=== PATIENT | female | born 2000 | race African-American/Black ===

== ENCOUNTER 2018-07-21 14:23 | Inpatient (IN) ==
[2018-07-21] MEDS ORDERED: MEPERIDINE 50 MG/1 ML VIAL IM ONE (14:43)
[2018-07-21] MEDS ORDERED: PROMETHAZINE 25 MG/1 ML VIAL IM ONE (14:43)
[2018-07-22] MEDS ORDERED: ACETAMINOPHEN 500 MG TABLET PO PRN (00:04)
[2018-07-22] MEDS ORDERED: ONDANSETRON 4 MG/2 ML VIAL IV PRN ×2 (05:23→16:38)
[2018-07-22] MEDS: LACTATED RINGERS 1,000 ML IV SCH ×5 (05:27→22:45)
[2018-07-22] MEDS ORDERED: BUTORPHANOL 2 MG/ML VIAL IV PRN (05:37)
[2018-07-22] MEDS: MEPERIDINE 50 MG/1 ML VIAL IV PRN ×2 (05:41→09:14)
[2018-07-22] MEDS ORDERED: OXYTOCIN/LR 20 UNIT/1,000 ML BAG IV SCH (06:00)
[2018-07-22 06:06] LABS: Basophils % 0.4 % (0.0-0.8); Eosinophils # 0.1 10*3/uL (0.0-0.87); Eosinophils % 0.5 % (0.00-10.9); Hematocrit 31.2 VOL% (35.7-47.0); Hemoglobin 9.7 GM/DL (12.0-16.0); Immature Granulocytes % 0.3 %; Immature Granulocytes Absolute 0.03 #; Lymphocytes # 2.6 10*3/uL (1.4-4.0); Lymphocytes % 26.2 % (21.3-54.2); Mean Corpuscular HGB Conc 31.1 GM/DL (32-36); Mean Corpuscular Hemoglobin 28 PG (27-34); Mean Corpuscular Volume 89.7 FL (87-102); Mean Platelet Volume 9.5 FL (9.6-12.0); Monocytes # 0.8 10*3/uL (0.11-0.8); Monocytes % 7.8 % (1.7-12.7); Neutrophils # 6.4 10*3/uL (1.4-7.4); Neutrophils % 64.8 % (38.7-73.9); Platelet Count 249 T/CUMM (130-400); Red Blood Count 3.48 MC/CUMM (3.8-5.5); Red Cell Distribution Width 13.7 % (9.3-17.3); White Blood Count 9.9 T/CUMM (4-12)
[2018-07-22] MEDS ORDERED: CITRIC ACID/SODIUM CITRATE 30 ML UDCUP PO ONE (06:09)
[2018-07-22] MEDS ORDERED: FAMOTIDINE 20 MG/2 ML VIAL IV ONE (06:09)
[2018-07-22 06:25] LABS: Alanine Aminotransferase 15 U/L (13-56); Albumin 2.4 G/DL (3.4-5.0); Alkaline Phosphatase 196 U/L (45-117); Aspartate Amino Transferase 25 U/L (0-37); Bilirubin,Total < 0.39 MG/DL (0.2-1.0); Blood Urea Nitrogen 5 MG/DL (7-18); Calcium 8.1 MG/DL (8.5-10.1); Glucose 67 MG/DL (74-106); Osmolality,Calculated 273.4 MOS/KG (273-304); Potassium 3.4 MMOL/L (3.5-5.1); Sodium 140 MMOL/L (136-145)
[2018-07-22] MEDS ORDERED: fentaNYL 2 MCG/ROPIV 0.2% EPID 100 ML EPIDURAL SCH (06:30)
[2018-07-22 10:17] LABS: Apearance,Urine Slightly Hazy (Clear); Bilirubin,Urine Negative (Negative); Blood, Urine Small mg/dL (Negative); Calcium Oxalate Crystals,Urine Occasional /HPF (Few); Glucose,Urine (UA) Negative (Negative); Ketones,Urine Negative (Negative); Mucus,Urine Many /LPF (Occasional); Nitrite,Urine Negative (Negative); Protein,Urine 30 MG/DL; RBC,Urine 32 /HPF (0-4); Squamous Epithelial Cell,Urine Occasional /HPF (0-10); Urine Color Yellow (Yellow); Urine Specific Gravity 1.024 (1.001-1.035); Urine Urobilinogen < 2.0 EU/DL (0.2-1.0); WBC,Urine 4 /HPF (0-6)
[2018-07-22] MEDS ORDERED: miSOPROStol 200 MCG TABLET ONE (14:21)
[2018-07-22] MEDS ORDERED: LIDOCAINE 1% 50 ML VIAL ONE (14:21)
[2018-07-22] MEDS ORDERED: METHYLERGONOVINE 0.2 MG/1 ML AMP ONE (14:22)
[2018-07-22] MEDS ORDERED: ceFAZolin 2,000 MG in PREMIX 1 EACH IV ONE (15:19)
[2018-07-22] MEDS ORDERED: WITCH HAZEL PADS 100/JAR TOP PRN (16:38)
[2018-07-22] MEDS ORDERED: LANOLIN 50% CREAM 0.3 OZ TUBE TOP PRN (16:38)
[2018-07-22] MEDS ORDERED: HYDROCORTISONE 2.5% RECTAL CREAM 30 GM TUBE TOP PRN (16:38)
[2018-07-22] MEDS ORDERED: BENZOCAINE 20%/MENTHOL 0.5% SPRAY 56 GM CAN TOP PRN (16:38)
[2018-07-22] MEDS ORDERED: BISACODYL 10 MG SUPP RECTAL PRN (16:38)
[2018-07-22] MEDS ORDERED: DIPH/TET/ACEL PERT BOOSTER VACCINE 0.5 ML VIAL IM ONE (16:38)
[2018-07-22] MEDS ORDERED: RHO(D) IMMUNE GLOBULIN 300 MCG SYRINGE IM ONE (16:38)
[2018-07-22] MEDS ORDERED: OXYTOCIN/LR 20 UNIT/1,000 ML BAG IV ONE (16:38)
[2018-07-22] MEDS ORDERED: ACETAMINOPHEN 325 MG TABLET PO PRN (16:38)
[2018-07-22] MEDS ORDERED: MEASLES/MUMPS/RUBELLA VACCINE 0.5 ML VIAL SUBCUT ONE (16:38)
[2018-07-22] MEDS ORDERED: oxyCODONE/ACETAMINOPHEN 5-325 MG TABLET PO PRN (16:38)
[2018-07-22] MEDS ORDERED: MORPHINE 10 MG/10 ML VIAL ONE (16:52)
[2018-07-22] MEDS ORDERED: KETAMINE 500 MG/10 ML VIAL ONE (16:53)
[2018-07-22] MEDS ORDERED: MIDAZOLAM 2 MG/2 ML VIAL ONE (16:53)
[2018-07-22] MEDS ORDERED: fentaNYL 100 MCG/2 ML VIAL ONE (16:54)
[2018-07-22] MEDS ORDERED: LIDOCAINE 2% 20 ML VIAL ONE (16:54)
[2018-07-22] MEDS: DOCUSATE SODIUM 100 MG CAPSULE PO SCH (20:55)
[2018-07-22] MEDS: IBUPROFEN 800 MG TABLET PO PRN (21:18)
[2018-07-23] MEDS: ceFAZolin 1,000 MG in SYRINGE 1 EACH IV SCH ×2 (00:17→08:20)
[2018-07-23] MEDS: oxyCODONE/ACETAMINOPHEN 5-325 MG TABLET PO PRN ×4 (05:51→23:52)
[2018-07-23 05:52] LABS: Basophils % 0.1 % (0.0-0.8); Hematocrit 24.1 VOL% (35.7-47.0); Hemoglobin 7.7 GM/DL (12.0-16.0); Immature Granulocytes % 0.6 %; Immature Granulocytes Absolute 0.13 #; Lymphocytes # 2.3 10*3/uL (1.4-4.0); Lymphocytes % 10.8 % (21.3-54.2); Mean Corpuscular Hemoglobin 28 PG (27-34); Monocytes # 1.4 10*3/uL (0.11-0.8); Monocytes % 6.6 % (1.7-12.7); Neutrophils # 17.7 10*3/uL (1.4-7.4); Neutrophils % 81.9 % (38.7-73.9); Platelet Count 215 T/CUMM (130-400); Red Blood Count 2.77 MC/CUMM (3.8-5.5); Red Cell Distribution Width 13.8 % (9.3-17.3); White Blood Count 21.6 T/CUMM (4-12)
[2018-07-23 06:20] LABS: Hypochromasia 2+; Platelet Estimate Normal; Target Cells Few
[2018-07-23] MEDS: FERROUS SULFATE 325 MG TABLET PO SCH ×3 (08:25→20:24)
[2018-07-23] MEDS: DOCUSATE SODIUM 100 MG CAPSULE PO SCH ×2 (08:25→20:24)
[2018-07-23] MEDS: IBUPROFEN 800 MG TABLET PO PRN ×3 (10:59→22:50)
[2018-07-23] MEDS: MAGNESIUM HYDROXIDE SUSP 30 ML UDCUP PO PRN (11:01)
[2018-07-24] MEDS ORDERED: SIMETHICONE CHEW 80 MG TABLET PO PRN (07:42)
[2018-07-24] MEDS: DOCUSATE SODIUM 100 MG CAPSULE PO SCH ×3 (08:54→23:53)
[2018-07-24] MEDS: MAGNESIUM HYDROXIDE SUSP 30 ML UDCUP PO PRN (08:54)
[2018-07-24] MEDS: FERROUS SULFATE 325 MG TABLET PO SCH ×4 (08:56→23:53)
[2018-07-24] MEDS: IBUPROFEN 800 MG TABLET PO PRN ×2 (08:56→19:48)
[2018-07-24 12:42] LABS: Basophils % 0.2 % (0.0-0.8); Eosinophils # 0.2 10*3/uL (0.0-0.87); Eosinophils % 0.9 % (0.00-10.9); Hematocrit 24.8 VOL% (35.7-47.0); Immature Granulocytes % 0.7 %; Immature Granulocytes Absolute 0.11 #; Lymphocytes # 2.4 10*3/uL (1.4-4.0); Lymphocytes % 14.8 % (21.3-54.2); Mean Corpuscular HGB Conc 32.3 GM/DL (32-36); Mean Corpuscular Hemoglobin 29 PG (27-34); Mean Corpuscular Volume 88.6 FL (87-102); Mean Platelet Volume 9.7 FL (9.6-12.0); Monocytes # 0.8 10*3/uL (0.11-0.8); Monocytes % 5.1 % (1.7-12.7); Neutrophils # 12.6 10*3/uL (1.4-7.4); Neutrophils % 78.3 % (38.7-73.9); Platelet Count 256 T/CUMM (130-400); Red Cell Distribution Width 13.9 % (9.3-17.3); White Blood Count 16.1 T/CUMM (4-12)
[2018-07-24] MEDS: oxyCODONE/ACETAMINOPHEN 5-325 MG TABLET PO PRN (15:55)
[2018-07-24] MEDS: POTASSIUM CHLORIDE 20 MEQ TABLET PO SCH ×2 (17:38→23:58)
[2018-07-25] MEDS: POTASSIUM CHLORIDE 20 MEQ TABLET PO SCH (06:14)
[2018-07-25 07:21] VITALS: BP 129/80
[2018-07-25] MEDS: FERROUS SULFATE 325 MG TABLET PO SCH (08:26)
[2018-07-25] MEDS: DOCUSATE SODIUM 100 MG CAPSULE PO SCH (08:26)
== END 2018-07-25 11:00 | disposition home or self-care (01) | DRG 540 ==
LOC: N.LDOUT 14:23 → N.LD 14:24 → N.OB 07-22 19:30
PROVIDERS: ADMIT Specialist; ATTEND Specialist
PROC: LDCSECT (ICD-10-PCS; 2018-07-22 16:00)

== ENCOUNTER 2018-10-18 17:38 | Observation (INO) ==
[2018-10-18] MEDS ORDERED: KETOROLAC 30 MG/1 ML VIAL IV STA (19:11)
[2018-10-18] MEDS ORDERED: ONDANSETRON 4 MG/2 ML VIAL IV STA (19:11)
[2018-10-18] MEDS ORDERED: SODIUM CHLORIDE 0.9% 1,000 ML IV STA (19:11)
[2018-10-18 19:32] LABS: Basophils # 0.1 10*3/uL (0.0-0.2); Basophils % 0.6 % (0.0-0.8); Eosinophils # 0.1 10*3/uL (0.0-0.87); Eosinophils % 1.4 % (0.00-10.9); Hematocrit 41.1 VOL% (35.7-47.0); Hemoglobin 12.6 GM/DL (12.0-16.0); Immature Granulocytes % 0.1 %; Immature Granulocytes Absolute 0.01 #; Lymphocytes # 4.3 10*3/uL (1.4-4.0); Lymphocytes % 53.5 % (21.3-54.2); Mean Corpuscular HGB Conc 30.7 GM/DL (32-36); Mean Corpuscular Volume 84.9 FL (87-102); Mean Platelet Volume 9.4 FL (9.6-12.0); Monocytes % 7.9 % (1.7-12.7); Neutrophils % 36.5 % (38.7-73.9); Platelet Count 357 T/CUMM (130-400); Red Blood Count 4.84 MC/CUMM (3.8-5.5); Red Cell Distribution Width 14.8 % (9.3-17.3); White Blood Count 7.9 T/CUMM (4-12)
[2018-10-18 19:58] LABS: Lymphocytes 52 % (20-55); Platelet Estimate Normal; Segmented Neutrophils 44 % (50-85); Total Cells Counted 100
[2018-10-18 20:22] LABS: Apearance,Urine CLEAR (Clear); Bacteria,Urine Occasional /HPF (Few); Bilirubin,Urine Negative (Negative); Blood, Urine Moderate mg/dL (Negative); Glucose,Urine (UA) Negative (Negative); Ketones,Urine Negative (Negative); Nitrite,Urine Negative (Negative); Protein,Urine Negative; RBC,Urine 1 /HPF (0-4); Squamous Epithelial Cell,Urine Occasional /HPF (0-10); Urine Color Straw (Yellow); Urine Specific Gravity 1.051 (1.001-1.035); Urine Urobilinogen < 2.0 EU/DL (0.2-1.0); WBC,Urine 2 /HPF (0-6)
[2018-10-18 20:30] LABS: Alanine Aminotransferase 26 U/L (13-56); Albumin 4.2 G/DL (3.4-5.0); Alkaline Phosphatase 111 U/L (45-117); Amylase 106 U/L (25-115); Aspartate Amino Transferase 20 U/L (0-37); Bilirubin,Total < 0.39 MG/DL (0.2-1.0); Blood Urea Nitrogen 8 MG/DL (7-18); Calcium 8.8 MG/DL (8.5-10.1); Glucose 87 MG/DL (74-106); Osmolality,Calculated 275.4 MOS/KG (273-304); Total Protein 8.2 G/DL (6.4-8.3)
[2018-10-18] MEDS ORDERED: ACETAMINOPHEN 325 MG TABLET PO PRN (20:33)
[2018-10-18] MEDS ORDERED: MORPHINE 4 MG/1 ML VIAL IV STA (20:35)
[2018-10-18] MEDS ORDERED: ONDANSETRON 4 MG/2 ML VIAL IV ONE (20:35)
[2018-10-18] MEDS ORDERED: PIPERACILLIN/TAZOBACTAM 3,375 MG in SODIUM CHLORIDE 0.9% 100 ML IV ONE (20:35)
[2018-10-18] MEDS ORDERED: PIPERACILLIN/TAZOBACTAM 3,375 MG in SODIUM CHLORIDE 0.9% 100 ML IV SCH (21:00)
[2018-10-18] MEDS: DEXTROSE 5% NACL 0.45% 1,000 ML IV SCH (23:06)
[2018-10-18] MEDS: MORPHINE 4 MG/1 ML VIAL IV PRN (23:16)
[2018-10-19] MEDS: MORPHINE 4 MG/1 ML VIAL IV PRN ×2 (04:33→10:32)
[2018-10-19 04:47] LABS: Basophils % 0.4 % (0.0-0.8); Eosinophils # 0.2 10*3/uL (0.0-0.87); Eosinophils % 2.1 % (0.00-10.9); Hematocrit 35.3 VOL% (35.7-47.0); Hemoglobin 10.9 GM/DL (12.0-16.0); Immature Granulocytes % 0.3 %; Immature Granulocytes Absolute 0.02 #; Lymphocytes % 56.8 % (21.3-54.2); Mean Corpuscular HGB Conc 30.9 GM/DL (32-36); Mean Corpuscular Volume 84.4 FL (87-102); Mean Platelet Volume 9.8 FL (9.6-12.0); Monocytes % 9.7 % (1.7-12.7); Neutrophils % 30.7 % (38.7-73.9); Platelet Count 320 T/CUMM (130-400); Red Blood Count 4.18 MC/CUMM (3.8-5.5); Red Cell Distribution Width 14.8 % (9.3-17.3); White Blood Count 7.1 T/CUMM (4-12)
[2018-10-19 04:58] LABS: Calcium 8.3 MG/DL (8.5-10.1); Osmolality,Calculated 278.3 MOS/KG (273-304)
[2018-10-19 05:56] LABS: Band Neutrophils 2 % (0-10); Eosinophils 3 % (0-10); Hypochromasia Slight; Lymphocytes 50 % (20-55); Platelet Estimate Normal; Segmented Neutrophils 34 % (50-85); Total Cells Counted 100
[2018-10-19] MEDS ORDERED: cefOXitin 2,000 MG in SYRINGE 1 EACH IV ONE (06:49)
[2018-10-19] MEDS: PANTOPRAZOLE 40 MG VIAL IV SCH (08:00)
[2018-10-19] MEDS: ENOXAPARIN 40 MG/0.4 ML SYRINGE SUBCUT SCH (08:00)
[2018-10-19] MEDS ORDERED: BUPIVACAINE 0.5% 50 ML VIAL ONE (08:13)
[2018-10-19] MEDS ORDERED: TISSUE ADHESIVE 1 EACH APPLICATOR TOP ONE (08:13)
[2018-10-19] MEDS ORDERED: LIDOCAINE 1%/EPI INJ 20 ML VIAL ONE (08:13)
[2018-10-19] MEDS ORDERED: PANTOPRAZOLE 40 MG TABLET PO SCH (09:00)
[2018-10-19] MEDS ORDERED: SUGAMMADEX 200 MG/2 ML VIAL IV ONE (09:01)
[2018-10-19] MEDS ORDERED: PROPOFOL 200 MG/20 ML VIAL IV ONE (09:31)
[2018-10-19] MEDS ORDERED: SEVOFLURANE 1 UNIT/15 MINUTE INH ONE (09:31)
[2018-10-19] MEDS ORDERED: ONDANSETRON 4 MG/2 ML VIAL ONE (09:32)
[2018-10-19] MEDS ORDERED: KETOROLAC 30 MG/1 ML VIAL ONE (09:32)
[2018-10-19] MEDS ORDERED: MIDAZOLAM 2 MG/2 ML VIAL ONE (09:32)
[2018-10-19] MEDS ORDERED: ROCURONIUM 100 MG/10 ML VIAL IV ONE (09:32)
[2018-10-19] MEDS ORDERED: fentaNYL 100 MCG/2 ML VIAL ONE (09:32)
[2018-10-19] MEDS ORDERED: DEXAMETHASONE 4 MG/1 ML VIAL ONE (09:32)
[2018-10-19] MEDS ORDERED: LACTATED RINGERS 1,000 ML IV ONE (09:32)
[2018-10-19] MEDS ORDERED: ACETAMINOPHEN 1,000 MG/100 ML VIAL IV ONE (09:32)
[2018-10-19] MEDS: ONDANSETRON 4 MG/2 ML VIAL IV PRN ×2 (10:32→16:17)
[2018-10-19] MEDS: DEXTROSE 5% NACL 0.45% 1,000 ML IV SCH ×3 (16:28→23:46)
[2018-10-20 04:08] LABS: Basophils % 0.1 % (0.0-0.8); Hematocrit 36.3 VOL% (35.7-47.0); Hemoglobin 11.1 GM/DL (12.0-16.0); Immature Granulocytes % 0.3 %; Immature Granulocytes Absolute 0.03 #; Lymphocytes # 1.5 10*3/uL (1.4-4.0); Lymphocytes % 16.4 % (21.3-54.2); Mean Corpuscular HGB Conc 30.6 GM/DL (32-36); Mean Corpuscular Volume 84.4 FL (87-102); Mean Platelet Volume 9.6 FL (9.6-12.0); Monocytes % 8.4 % (1.7-12.7); Neutrophils % 74.8 % (38.7-73.9); Platelet Count 366 T/CUMM (130-400); Red Cell Distribution Width 14.7 % (9.3-17.3)
[2018-10-20 04:36] LABS: Calcium 8.7 MG/DL (8.5-10.1); Osmolality,Calculated 280.3 MOS/KG (273-304)
[2018-10-20] MEDS: ENOXAPARIN 40 MG/0.4 ML SYRINGE SUBCUT SCH (06:34)
[2018-10-20 07:33] VITALS: BP 115/75
[2018-10-20] MEDS: DEXTROSE 5% NACL 0.45% 1,000 ML IV SCH (08:01)
[2018-10-20] MEDS: PANTOPRAZOLE 40 MG VIAL IV SCH (08:25)
[2018-10-20] MEDS ORDERED: SERTRALINE 25 MG TABLET PO SCH (09:00)
== END 2018-10-20 11:18 | disposition home or self-care (01) ==
LOC: N.ED 17:38 → N.EDINP 17:38 → N.3E 22:13
PROVIDERS: ADMIT Surgery; ATTEND Surgery

== ENCOUNTER 2018-10-27 22:50 | Inpatient (IN) ==
[2018-10-28] MEDS ORDERED: KETOROLAC 30 MG/1 ML VIAL IV STA (01:34)
[2018-10-28] MEDS ORDERED: ONDANSETRON 4 MG/2 ML VIAL IV STA (01:34)
[2018-10-28] MEDS ORDERED: SODIUM CHLORIDE 0.9% 1,000 ML IV STA (01:34)
[2018-10-28 02:02] LABS: Basophils # 0.1 10*3/uL (0.0-0.2); Basophils % 0.8 % (0.0-0.8); Eosinophils # 0.2 10*3/uL (0.0-0.87); Eosinophils % 1.6 % (0.00-10.9); Hemoglobin 13.3 GM/DL (12.0-16.0); Immature Granulocytes % 0.2 %; Immature Granulocytes Absolute 0.02 #; Lymphocytes # 4.1 10*3/uL (1.4-4.0); Lymphocytes % 44.4 % (21.3-54.2); Mean Corpuscular HGB Conc 30.9 GM/DL (32-36); Mean Platelet Volume 9.2 FL (9.6-12.0); Monocytes % 6.2 % (1.7-12.7); Neutrophils % 46.8 % (38.7-73.9); Platelet Count 410 T/CUMM (130-400); Red Blood Count 5.06 MC/CUMM (3.8-5.5); Red Cell Distribution Width 14.7 % (9.3-17.3); White Blood Count 9.3 T/CUMM (4-12)
[2018-10-28 02:22] LABS: Amorphous Crystals,Urine Occasional /HPF (Few); Apearance,Urine CLOUDY (Clear); Bilirubin,Urine Negative (Negative); Blood, Urine Moderate mg/dL (Negative); Glucose,Urine (UA) Negative (Negative); Ketones,Urine Negative (Negative); Mucus,Urine Occasional /LPF (Occasional); Nitrite,Urine Negative (Negative); Protein,Urine Negative; Squamous Epithelial Cell,Urine Occasional /HPF (0-10); Urine Color Yellow (Yellow); Urine Urobilinogen < 2.0 EU/DL (0.2-1.0)
[2018-10-28 02:24] LABS: Alanine Aminotransferase 27 U/L (13-56); Albumin 4.3 G/DL (3.4-5.0); Alkaline Phosphatase 115 U/L (45-117); Aspartate Amino Transferase 19 U/L (0-37); Bilirubin,Total < 0.39 MG/DL (0.2-1.0); Blood Urea Nitrogen 11 MG/DL (7-18); Calcium 9.6 MG/DL (8.5-10.1); Glucose 91 MG/DL (74-106); Osmolality,Calculated 275.5 MOS/KG (273-304); Total Protein 8.5 G/DL (6.4-8.3)
[2018-10-28] MEDS ORDERED: PIPERACILLIN/TAZOBACTAM 3,375 MG in SODIUM CHLORIDE 0.9% 100 ML IV STA (06:24)
[2018-10-28] MEDS ORDERED: ACETAMINOPHEN 325 MG TABLET PO PRN (06:34)
[2018-10-28] MEDS ORDERED: ONDANSETRON 4 MG/2 ML VIAL IV PRN (06:34)
[2018-10-28] MEDS ORDERED: MORPHINE 4 MG/1 ML VIAL IV PRN (06:34)
[2018-10-28] MEDS ORDERED: DEXTROSE 5% NACL 0.45% 1,000 ML IV SCH (07:00)
[2018-10-28] MEDS ORDERED: PROMETHAZINE 25 MG/1 ML VIAL IM PRN (08:52)
[2018-10-28] MEDS ORDERED: HYDROmorphone 2 MG/1 ML VIAL IV PRN (08:52)
[2018-10-28] MEDS ORDERED: PANTOPRAZOLE 40 MG TABLET PO SCH (09:00)
[2018-10-28] MEDS ORDERED: DIAZEPAM 10 MG/2 ML SYRINGE IV ONE (09:14)
[2018-10-28] MEDS: LACTATED RINGERS 1,000 ML IV SCH ×2 (09:51→17:05)
[2018-10-28] MEDS: ONDANSETRON 4 MG/2 ML VIAL IV PRN (10:25)
[2018-10-28] MEDS ORDERED: ONDANSETRON 4 MG/2 ML VIAL ONE (10:33)
[2018-10-28] MEDS ORDERED: diphenhydrAMINE 50 MG/1 ML VIAL IV PRN (13:54)
[2018-10-28] MEDS ORDERED: PIPERACILLIN/TAZOBACTAM 3,375 MG in SODIUM CHLORIDE 0.9% 100 ML IV SCH (15:00)
[2018-10-28] MEDS: KETOROLAC 15 MG/1 ML VIAL IV PRN (19:48)
[2018-10-29] MEDS: LACTATED RINGERS 1,000 ML IV SCH ×3 (00:09→17:46)
[2018-10-29] MEDS: ENOXAPARIN 40 MG/0.4 ML SYRINGE SUBCUT SCH (03:54)
[2018-10-29] MEDS: ONDANSETRON 4 MG/2 ML VIAL IV PRN (04:01)
[2018-10-29 04:46] LABS: Basophils % 0.6 % (0.0-0.8); Eosinophils # 0.3 10*3/uL (0.0-0.87); Eosinophils % 4.9 % (0.00-10.9); Hematocrit 34.4 VOL% (35.7-47.0); Immature Granulocytes % 0.2 %; Immature Granulocytes Absolute 0.01 #; Lymphocytes # 2.4 10*3/uL (1.4-4.0); Lymphocytes % 37.5 % (21.3-54.2); Mean Corpuscular HGB Conc 31.7 GM/DL (32-36); Mean Corpuscular Volume 83.7 FL (87-102); Mean Platelet Volume 9.7 FL (9.6-12.0); Monocytes % 8.3 % (1.7-12.7); Neutrophils % 48.5 % (38.7-73.9); Platelet Count 341 T/CUMM (130-400); Red Blood Count 4.11 MC/CUMM (3.8-5.5); Red Cell Distribution Width 14.9 % (9.3-17.3)
[2018-10-29 04:47] LABS: White Blood Count 6.4 T/CUMM (4-12)
[2018-10-29 04:48] LABS: Hemoglobin 10.9 GM/DL (12.0-16.0)
[2018-10-29 04:48] LABS: Calcium 8.6 MG/DL (8.5-10.1); Osmolality,Calculated 280.3 MOS/KG (273-304)
[2018-10-29] MEDS: KETOROLAC 15 MG/1 ML VIAL IV PRN ×2 (12:19→18:40)
[2018-10-30] MEDS: LACTATED RINGERS 1,000 ML IV SCH (06:17)
[2018-10-30 07:30] VITALS: BP 115/64
[2018-10-30] MEDS ORDERED: AMOXICILLIN/CLAV 875 MG TABLET PO SCH (09:00)
[2018-10-30] MEDS: ENOXAPARIN 40 MG/0.4 ML SYRINGE SUBCUT SCH (10:27)
== END 2018-10-30 10:00 | disposition home or self-care (01) | DRG 721 ==
LOC: N.ED 22:50 → N.EDINP 10-28 06:31 → N.2E 10-28 06:57
PROVIDERS: ADMIT Surgery; ATTEND Surgery

== ENCOUNTER 2021-03-10 05:36 | Inpatient (IN) ==
[2021-03-10] MEDS ORDERED: ONDANSETRON 4 MG/2 ML VIAL IV PRN ×2 (05:43→11:50)
[2021-03-10] MEDS ORDERED: ACETAMINOPHEN 325 MG TABLET PO PRN ×2 (05:43→11:50)
[2021-03-10] MEDS ORDERED: ceFAZolin 2,000 MG/50 ML DUPLEX IV ONE (05:45)
[2021-03-10] MEDS: LACTATED RINGERS 1,000 ML IV SCH ×3 (06:05→16:00)
[2021-03-10] MEDS ORDERED: CARBOPROST TROMETHAMINE 250 MCG/ML AMP IM ONE (06:19)
[2021-03-10] MEDS ORDERED: TRANEXAMIC ACID 1,000 MG/10 ML VIAL ONE (06:19)
[2021-03-10] MEDS ORDERED: METHYLERGONOVINE 0.2 MG/1 ML AMP ONE (06:19)
[2021-03-10] MEDS ORDERED: miSOPROStoL 200 MCG TABLET ONE (06:19)
[2021-03-10 06:20] LABS: Basophils % 0.4 % (0.0-0.8); Eosinophils # 0.1 10*3/uL (0.0-0.87); Eosinophils % 1.3 % (0.00-10.9); Hematocrit 34.8 VOL% (35.7-47.0); Hemoglobin 11.2 GM/DL (12.0-16.0); Immature Granulocytes % 0.3 %; Immature Granulocytes Absolute 0.03 #; Lymphocytes # 2.4 10*3/uL (1.4-4.0); Lymphocytes % 25.9 % (21.3-54.2); Mean Corpuscular HGB Conc 32.2 GM/DL (32-36); Mean Corpuscular Volume 90.2 FL (87-102); Mean Platelet Volume 9.3 FL (9.6-12.0); Monocytes % 6.9 % (1.7-12.7); Neutrophils % 65.2 % (38.7-73.9); Platelet Count 245 T/CUMM (130-400); Red Blood Count 3.86 MC/CUMM (3.8-5.5); Red Cell Distribution Width 13.8 % (9.3-17.3); White Blood Count 9.1 T/CUMM (4-12)
[2021-03-10] MEDS ORDERED: SODIUM CHLORIDE 0.9% 0 ML IV ONE (06:20)
[2021-03-10] MEDS ORDERED: CITRIC ACID/SODIUM CITRATE 30 ML UDCUP PO ONE (06:20)
[2021-03-10] MEDS ORDERED: FAMOTIDINE 20 MG/2 ML VIAL IV ONE (06:20)
[2021-03-10 06:37] LABS: Albumin 2.7 G/DL (3.4-5.0); Bilirubin,Total 0.7 MG/DL (0.20-1.00); Calcium 8.4 MG/DL (8.5-10.1); Osmolality,Calculated 272.5 MOS/KG (273-304); Potassium 3.3 MMOL/L (3.5-5.1); Total Protein 6.6 G/DL (6.4-8.2)
[2021-03-10] MEDS ORDERED: BUPIVACAINE SPINAL 0.75% 2 ML AMP SPINAL ONE (06:49)
[2021-03-10] MEDS ORDERED: ONDANSETRON 4 MG/2 ML VIAL ONE (06:50)
[2021-03-10] MEDS ORDERED: PHENYLEPHRINE 1 MG/10 ML SYRINGE IV ONE (07:24)
[2021-03-10] MEDS ORDERED: LACTATED RINGERS 1,000 ML IV ONE (07:25)
[2021-03-10] MEDS: OXYTOCIN/LR 20 UNIT/1,000 ML BAG IV PRN ×2 (07:36→08:52)
[2021-03-10] MEDS ORDERED: ACETAMINOPHEN INJ 1,000 MG/100 ML VIAL IV ONE (07:39)
[2021-03-10] MEDS ORDERED: KETOROLAC 30 MG/1 ML VIAL ONE (07:40)
[2021-03-10 07:47] LABS: Cord Arterial Blood HCO3 20.8 MMOL/L; Cord Venous Blood HCO3 24.2 MMOL/L; Cord Venous Blood PCO2 47.3 MMHG; Cord Venous Blood PO2 19.9 MMHG
[2021-03-10 07:54] LABS: Bilirubin,Urine Negative (Negative); Blood, Urine Negative (Negative); Glucose,Urine (UA) Negative (Negative); Ketones,Urine Negative (Negative); Nitrite,Urine Negative (Negative); Protein,Urine Negative; RBC,Urine 1 /HPF (0-4); Squamous Epithelial Cell,Urine Occasional /HPF (0-10); Urine Appearance CLEAR (Clear); Urine Color Straw (Yellow); Urine Specific Gravity 1.008 (1.001-1.035); Urine Urobilinogen < 2.0 EU/DL (0.2-1.0)
[2021-03-10] MEDS ORDERED: HYDROCORTISONE 2.5% RECTAL CREAM 30 GM TUBE TOP PRN (11:50)
[2021-03-10] MEDS ORDERED: OXYTOCIN/LR 20 UNIT/1,000 ML BAG IV ONE (11:50)
[2021-03-10] MEDS ORDERED: BENZOCAINE 20%/MENTHOL 0.5% SPRAY 56 GM CAN TOP PRN (11:50)
[2021-03-10] MEDS ORDERED: RHO(D) IMMUNE GLOBULIN 300 MCG SYRINGE IM ONE (11:50)
[2021-03-10] MEDS ORDERED: LANOLIN 50% CREAM 0.3 OZ TUBE TOP PRN (11:50)
[2021-03-10] MEDS ORDERED: WITCH HAZEL PADS 100/JAR TOP PRN (11:50)
[2021-03-10] MEDS ORDERED: oxyCODONE/ACETAMINOPHEN 5-325 MG TABLET PO PRN (11:50)
[2021-03-10] MEDS ORDERED: MEASLES/MUMPS/RUBELLA VACCINE 0.5 ML VIAL SUBCUT ONE (11:50)
[2021-03-10] MEDS ORDERED: BISACODYL 10 MG SUPP RECTAL PRN (11:50)
[2021-03-10] MEDS ORDERED: DIPH/TET/ACEL PERT BOOSTER VACCINE 0.5 ML VIAL IM ONE (11:50)
[2021-03-10] MEDS: ACETAMINOPHEN 500 MG TABLET PO SCH ×2 (13:55→19:57)
[2021-03-10] MEDS: KETOROLAC 30 MG/1 ML VIAL IV SCH ×2 (13:55→19:58)
[2021-03-10] MEDS: DOCUSATE SODIUM 100 MG CAPSULE PO SCH ×2 (16:00→21:30)
[2021-03-10] MEDS: POTASSIUM CHLORIDE 20 MEQ TABLET PO PRN ×3 (19:49→23:48)
[2021-03-11] MEDS: KETOROLAC 30 MG/1 ML VIAL IV SCH (02:07)
[2021-03-11] MEDS: oxyCODONE/ACETAMINOPHEN 5-325 MG TABLET PO PRN ×2 (02:09→17:36)
[2021-03-11] MEDS: ACETAMINOPHEN 500 MG TABLET PO SCH (02:09)
[2021-03-11] MEDS: SIMETHICONE CHEW 80 MG TABLET PO PRN ×3 (04:09→20:02)
[2021-03-11 06:28] LABS: Basophils % 0.2 % (0.0-0.8); Eosinophils # 0.4 10*3/uL (0.0-0.87); Eosinophils % 3.3 % (0.00-10.9); Hematocrit 33.8 VOL% (35.7-47.0); Hemoglobin 10.8 GM/DL (12.0-16.0); Immature Granulocytes % 0.6 %; Immature Granulocytes Absolute 0.07 #; Lymphocytes # 1.6 10*3/uL (1.4-4.0); Lymphocytes % 12.8 % (21.3-54.2); Mean Corpuscular Volume 91.1 FL (87-102); Mean Platelet Volume 9.5 FL (9.6-12.0); Monocytes % 7.6 % (1.7-12.7); Neutrophils % 75.5 % (38.7-73.9); Platelet Count 254 T/CUMM (130-400); Red Blood Count 3.71 MC/CUMM (3.8-5.5); White Blood Count 12.6 T/CUMM (4-12)
[2021-03-11] MEDS ORDERED: MAGNESIUM HYDROXIDE SUSP 30 ML UDCUP PO PRN (08:04)
[2021-03-11] MEDS: DOCUSATE SODIUM 100 MG CAPSULE PO SCH ×2 (09:21→20:02)
[2021-03-11] MEDS: IBUPROFEN 800 MG TABLET PO PRN ×3 (09:22→23:17)
[2021-03-11] MEDS: POTASSIUM CHLORIDE 20 MEQ TABLET PO PRN (23:16)
[2021-03-12] MEDS: IBUPROFEN 800 MG TABLET PO PRN (05:02)
[2021-03-12] MEDS: SIMETHICONE CHEW 80 MG TABLET PO PRN (09:14)
[2021-03-12] MEDS: DOCUSATE SODIUM 100 MG CAPSULE PO SCH (09:14)
[2021-03-12 10:08] VITALS: BP 110/62
[2021-03-12] MEDS ORDERED: DIPH/TET/ACEL PERT BOOSTER VACCINE 0.5 ML VIAL IM ONE (10:38)
== END 2021-03-12 12:45 | disposition home or self-care (01) | DRG 540 ==
LOC: N.LD 05:36 → N.OB 10:30
PROVIDERS: ADMIT Specialist; ATTEND Specialist
PROC: LDCSECT (ICD-10-PCS; 2021-03-10 07:30)